=== PATIENT | male | born 1950 | race Caucasian/White ===

== ENCOUNTER → 2017-10-31 | Outpatient (CLI) | payer MEDICARE, OTHER ==
[~2017-10-31] MED LIST: ATOR10; DORN1IH; Travatan Z5 ML; WARF5
== END | disposition home or self-care (01) ==
LOC: LAB 14:58
DX: M79.605 Pain in left leg (principal)
CPT/HCPCS: 85379

== ENCOUNTER → 2017-11-09 | Outpatient (CLI) | payer MEDICARE, OTHER ==
[2017-11-09 13:20] LABS: International Normalized Ratio 1.61
== END ==
LOC: LAB 12:00
PROVIDERS: Nurse Practitioner
DX: Z09 Encounter for follow-up examination after completed treatment for conditions other than malignant neoplasm (principal); Z86.711 Personal history of pulmonary embolism
CPT/HCPCS: 85610

== ENCOUNTER → 2017-11-12 | Outpatient (CLI) | payer MEDICARE, OTHER ==
[2017-11-12 12:27] LABS: Prothrombin Time Results 50.2 Sec (9.7-11.5)
[2017-11-12 12:34] LABS: International Normalized Ratio 4.6
== END | disposition home or self-care (01) ==
LOC: LAB 10:53
PROVIDERS: Physician Assistant
DX: Z09 Encounter for follow-up examination after completed treatment for conditions other than malignant neoplasm (principal); Z86.711 Personal history of pulmonary embolism
CPT/HCPCS: 85610

== ENCOUNTER 2019-03-26 06:08 | Day surgery (SDC) | payer MEDICARE, OTHER ==
[~2019-03-26] VITALS: Ht 188 cm; Wt 97.3 kg
[~2019-03-26 06:08] MED LIST changes: +ATOR20 PO; +Cosopt Plus10 ML; +VITAMIN D-32000 UNIT PO; +WARF7.5 PO; +[UNRECOGNIZED DRUG - OTHER] PO
--- NOTE | 2019-03-26 10:26 | NUR ---
03/26/19 1026 Samuel Espana 1ST IV ATTEMPT IN RH UNSUCCESSFUL, [email or web address] 2ND IV ATTEMPT IN RFA SUCCESSFUL, [email or web address]
[2019-05-20] MEDS ORDERED: WARF5 PO (12:42)
[2019-05-20] MEDS ORDERED: WARF2.5 PO (12:42)
== END 2019-03-26 10:59 | disposition home or self-care (01) ==
LOC: ORSCSDS 06:08
PROVIDERS: Orthopaedic Surgery
PROC: 0LQ24ZZ Repair Left Shoulder Tendon, Percutaneous Endoscopic Approach (ICD-10-PCS; principal; 2019-03-26 07:30)
PROC: 0LS24ZZ Reposition Left Shoulder Tendon, Percutaneous Endoscopic Approach (ICD-10-PCS; principal; 2019-03-26 07:30)
PROC: 0RNK4ZZ Release Left Shoulder Joint, Percutaneous Endoscopic Approach (ICD-10-PCS; principal; 2019-03-26 07:30)
DX: M75.122 Complete rotator cuff tear or rupture of left shoulder, not specified as traumatic (principal); E78.5 Hyperlipidemia, unspecified; G47.33 Obstructive sleep apnea (adult) (pediatric); Z86.711 Personal history of pulmonary embolism; Z79.01 Long term (current) use of anticoagulants; Z79.899 Other long term (current) drug therapy
CPT/HCPCS: C1713; J0171; J0690; J1100; J1885; J2250; J2405; J2704; J3010; J7120

== ENCOUNTER 2019-05-27 07:38 | Day surgery (SDC) | payer MEDICARE, OTHER ==
[~2019-05-27] VITALS: Ht 188 cm; Wt 96.5 kg
[~2019-05-27 07:38] MED LIST changes: +WARF2.5 PO; +WARF5 PO
[2019-05-27] MEDS ORDERED: ENOX30I (08:39)
--- NOTE | 2019-05-27 09:09 | NUR ---
05/27/19 0909 Joyce العلي PATIENT NOTIFIED OF DELAY DUE TO PRIOR CASE RUNNING LONG. PATIENT COMFORTABLE AND CALL LIGHT WITHIN REACH. PATIENT DOES ASK ME TO CALL HIS AND LET HER KNOW OF DELAY SO SHE DOESN'T WORRY. I DO PLACE CALL AND SPEAK TO AND INFORM HER OF DELAY AND ASSURE HER I WILL CALL AGAIN ONCE PROCEDURE IS COMPLETE
== END 2019-05-27 11:00 | disposition home or self-care (01) ==
LOC: ORSCSDS 07:38
PROVIDERS: Internal Medicine Gastroenterology
PROC: 0DBL8ZX Excision of Transverse Colon, Via Natural or Artificial Opening Endoscopic, Diagnostic (ICD-10-PCS; principal; 2019-05-27 09:00)
DX: Z12.11 Encounter for screening for malignant neoplasm of colon (principal); D12.3 Benign neoplasm of transverse colon; K57.30 Diverticulosis of large intestine without perforation or abscess without bleeding; K64.8 Other hemorrhoids; Z86.010 Personal history of colon polyps; Z80.0 Family history of malignant neoplasm of digestive organs; G47.33 Obstructive sleep apnea (adult) (pediatric); Z86.711 Personal history of pulmonary embolism; E78.5 Hyperlipidemia, unspecified; Z79.01 Long term (current) use of anticoagulants; Z79.899 Other long term (current) drug therapy
CPT/HCPCS: 88305; J2704; J7120

== ENCOUNTER 2020-10-22 15:33 | Emergency (ER) | payer MEDICARE, OTHER ==
[~2020-10-22] VITALS: Ht 188 cm; Wt 99.8 kg
[~2020-10-22 15:33] MED LIST changes: +ENOX30I
== END 2020-10-22 16:10 | disposition home or self-care (01) ==
LOC: ER 15:33
DX: M70.22 Olecranon bursitis, left elbow (principal); S50.02XA Contusion of left elbow, initial encounter; D68.32 Hemorrhagic disorder due to extrinsic circulating anticoagulants; M25.022 Hemarthrosis, left elbow; X58.XXXA Exposure to other specified factors, initial encounter
CPT/HCPCS: 99283-25

== ENCOUNTER 2022-07-04 06:43 | Day surgery (SDC) | payer MEDICARE, BC ==
[~2022-07-04] VITALS: Ht 188 cm; Wt 102.0 kg
[~2022-07-04 06:43] MED LIST changes: +LATA.005SO
== END 2022-07-04 09:06 | disposition home or self-care (01) ==
LOC: ORSCSDS 06:43
PROVIDERS: Internal Medicine Gastroenterology
PROC: 0DJD8ZZ Inspection of Lower Intestinal Tract, Via Natural or Artificial Opening Endoscopic (ICD-10-PCS; principal; 2022-07-04 08:00)
DX: Z12.11 Encounter for screening for malignant neoplasm of colon (principal); Z86.010 Personal history of colon polyps; Z80.0 Family history of malignant neoplasm of digestive organs; K57.30 Diverticulosis of large intestine without perforation or abscess without bleeding; G47.33 Obstructive sleep apnea (adult) (pediatric); E78.00 Pure hypercholesterolemia, unspecified; Z86.711 Personal history of pulmonary embolism; Z79.899 Other long term (current) drug therapy
CPT/HCPCS: J2704; J7120

== ENCOUNTER 2025-07-08 08:48 | Day surgery (SDC) | payer OTHER ==
[~2025-07-08] VITALS: Ht 188 cm; Wt 92.4 kg
[2025-07-08] MEDS ORDERED: ELIQUIS2.5 MG (09:45)
[2025-07-08] MEDS ORDERED: TURMERIC500 M2 (09:46)
[2025-07-08 09:50] VITALS: BP 127/79
--- NOTE | 2025-07-09 09:41 | NUR ---
07/09/25 0941 Michelet Garrison VS NICOLE
== END 2025-07-08 09:41 | disposition home or self-care (01) ==
LOC: ORSCSDS 08:48
DX: Z12.11 Encounter for screening for malignant neoplasm of colon (principal); D12.3 Benign neoplasm of transverse colon; K63.5 Polyp of colon; K57.30 Diverticulosis of large intestine without perforation or abscess without bleeding; K64.8 Other hemorrhoids; Z80.0 Family history of malignant neoplasm of digestive organs; Z86.0101 Personal history of adenomatous and serrated colon polyps; E78.5 Hyperlipidemia, unspecified; Z86.711 Personal history of pulmonary embolism; Z79.01 Long term (current) use of anticoagulants; Z79.899 Other long term (current) drug therapy
CPT/HCPCS: 88305; J2704; J7120